=== PATIENT | female | born 1940 | race Caucasian/White ===

== ENCOUNTER → 2017-06-27 | Outpatient (CLI) | payer MEDICARE ==
--- NOTE | 2017-06-27 14:32 | PCVCIMAG ---
EXAM: VENOUS DUPLEX BOTH LOWER EXTREMITIES INDICATION: Leg pain and swelling. FINDINGS: Right leg: No thrombus in the common femoral, main femoral, or popliteal veins. These veins are compressible with phasic flow. Calf veins are unremarkable where seen. Left leg: No thrombus in the common femoral, main femoral, or popliteal veins. These veins are compressible with phasic flow. Calf veins are unremarkable where seen. IMPRESSION: No evidence of deep venous thrombosis in either lower extremity as detailed above. Incidental note is made of a 1.7 x 6.0 cm right popliteal cyst and a 1.7 x 7.0 cm left popliteal cyst. LOC:[id number]
== END | disposition home or self-care (01) ==
LOC: PCVCIMAG 13:05
PROVIDERS: ATTEND Nuclear Medicine Nuclear Cardiology
DX: M71.22 Synovial cyst of popliteal space [Baker], left knee (principal); M71.21 Synovial cyst of popliteal space [Baker], right knee; M79.605 Pain in left leg; M79.604 Pain in right leg; M79.89 Other specified soft tissue disorders
CPT/HCPCS: 93970